=== PATIENT | female | born 1965 | race Caucasian/White ===

== ENCOUNTER 2017-09-18 17:11 | Emergency (ER) | payer OTHER ==
[~2017-09-18] VITALS: Ht 165.1 cm; Wt 67.6 kg
[2017-09-18 17:13] VITALS: TEMP 36.6; Ht 165.1 cm; Wt 67.6 kg
--- NOTE | 2017-09-18 17:25 | EMERGENCY ROOM VISIT NOTE ---
History Report prepared by Florentin: Orville Morales Under the Supervision of: Dr. Charline Link D.O. First contact with patient: 17:17 Chief Complaint: CHEST PAIN Stated Complaint: CHEST PAIN, TIGHTNESS,SOB History of Present Illness The patient is a 52 year old female who presents to the Emergency Room with complaints of constant chest pain beginning this morning. The patient states that her chest pain started this morning while she was at work. She notes that her pain is located under her right breast and feels as though "someone is squeezing really hard." She reports that her chest pain radiates around to her back and worsens to a sharp pain when she takes a deep breath and laughs. The patient also complains of occasional lightheadedness and SOB. She denies any changes in her urine/stool and leg swelling. The patient states that she has not had similar symptoms in the past. No prior cardiac testing. She notes that she has not had any recent change to her exercise and diet, and she reports that she does not have a previous history of stomach problems. The patient states that she did not take anything at home for her symptoms. She notes that she has a past history of vertigo. She reports that her father has a history of hypertension. She reports that she does not smoke cigarettes. Source of History: patient Onset: this morning Position: chest Quality: other (squeezing) Timing: constant Modifying Factors (Worsening): breathing, other (laughing) Associated Symptoms: + SOB, + back pain Note: The patient also complains of lightheadedness. She denies any changes in her urine/stool and leg swelling. Review of Systems See HPI for pertinent positives & negatives. A total of 10 systems reviewed and were otherwise negative. Past Medical & Surgical Medical Problems: (1) Alexander's palsy (2) Vertigo Family History FHx: cancer Hypertension Seizures Social History Smoking Status: Never Smoker Marital Status: Housing Status: lives with family Occupation Status: employed Current/Historical Medications No Active Prescriptions or Reported Meds Allergies Coded Allergies: No Known Allergies (Unverified , 09/18/17) Physical Exam Vital Signs Date Time Temp Pulse Resp B/P (MAP) Pulse Ox O2 Delivery O2 Flow Rate FiO2 09/18/17 22:25 78 18 163/88 96 09/18/17 22:01 138/79 09/18/17 21:46 62 16 95 09/18/17 21:31 131/81 09/18/17 21:16 65 16 97 09/18/17 21:05 65 09/18/17 21:01 133/94 09/18/17 20:46 66 22 97 09/18/17 20:35 150/78 09/18/17 20:35 67 17 150/78 97 Room Air 09/18/17 19:31 167/89 09/18/17 19:16 64 18 98 09/18/17 19:01 170/92 09/18/17 18:46 72 25 99 09/18/17 18:41 62 24 98 09/18/17 18:11 65 20 100 09/18/17 18:01 154/89 09/18/17 17:41 65 16 09/18/17 17:31 175/111 09/18/17 17:30 99 Room Air 09/18/17 17:26 63 09/18/17 17:13 36.6 69 17 187/105 97 Room Air Physical Exam GENERAL: alert, well appearing, well nourished, no distress, non-toxic EYE EXAM: normal conjunctiva, PERRL and EOM's grossly intact OROPHARYNX: no exudate, no erythema, lips, buccal mucosa, and tongue normal and mucous membranes are moist NECK: supple, no nuchal rigidity, no adenopathy, non-tender LUNGS: Clear to auscultation. Normal chest wall mechanics, no wheezes, rhonchi, and rales. HEART: no murmurs, S1 normal and S2 normal CHEST: Some reproducible tenderness just under bilateral breasts over mid chest wall anteriorly, right greater than left, no stepoff, no crepitus. Pt denies any changes to breasts recently. ABDOMEN: abdomen soft, non-tender, normo-active bowel sounds, no masses, no rebound or guarding. BACK: Back is symmetrical on inspection and there is no deformity, no midline tenderness, no CVA tenderness. SKIN: no rashes and no bruising UPPER EXTREMITIES: upper extremities are grossly normal. FROM, nml pulses b/l. LOWER EXTREMITIES: No pitting edema. FROM, nml pulses b/l. NEURO EXAM: Normal sensorium, cranial nerves II-XII grossly intact, normal speech, no gross weakness of arms, no gross weakness of legs. Medical Decision & Procedures ER Provider Diagnostic Interpretation: Radiology results have been interpreted by the radiologist and reviewed by me. CHEST ONE VIEW PORTABLE FINDINGS: Cardiomediastinal and hilar silhouettes are within normal limits. Calcification of the aorta. No pneumothorax, pleural effusion or overt pulmonary edema. Linear subsegmental opacities of the lateral left lung base suggest atelectasis. The bones of the chest appear grossly intact. IMPRESSION: No acute process. The above report was generated using voice recognition software. It may contain grammatical, syntax or spelling errors. Electronically signed by: Lauro Ryan M.D. 09/18/2017 5:54 PM Dictated Date/Time: 09/18/2017 5:53 PM GALLBLADDER-ABD LIMITED FINDINGS: The visualized pancreas appears unremarkable. Increased echogenicity of the liver may reflect hepatic steatosis. 9 mm cyst of the left hepatic lobe. No suspicious hepatic mass lesions or intrahepatic biliary ductal dilation. Gallbladder is unremarkable without wall thickening, pericholecystic fluid or shadowing cholelithiasis. Sonographic Yun sign reported as negative. Common bile duct is normal, 3 mm. The visualized right kidney appears unremarkable with mild pelviectasis. IMPRESSION: 1. No cholelithiasis or sonographic evidence of acute cholecystitis. 2. No biliary ductal dilation. 3. Mildly increased echogenicity of the liver may reflect hepatic steatosis. The above report was generated using voice recognition software. It may contain grammatical, syntax or spelling errors. Electronically signed by: Lauro Ryan M.D. 09/18/2017 8:17 PM Dictated Date/Time: 09/18/2017 8:14 PM Laboratory Results 09/18/17 17:45 Red Blood Count 4.99, Mean Corpuscular Volume 90.2, Mean Corpuscular Hemoglobin 31.7, Mean Corpuscular Hemoglobin Concent 35.1, Mean Platelet Volume 10.0, Neutrophils (%) (Auto) 56.1, Lymphocytes (%) (Auto) 33.4, Monocytes (%) (Auto) 8.0, Eosinophils (%) (Auto) 2.1, Basophils (%) (Auto) 0.2, Neutrophils # (Auto) 5.00, Lymphocytes # (Auto) 2.98, Monocytes # (Auto) 0.71, Eosinophils # (Auto) 0.19, Basophils # (Auto) 0.02 09/18/17 17:45 09/18/17 18:39 Test 09/18/17 17:45 09/18/17 18:39 09/18/17 21:20 White Blood Count 8.92 K/uL (4.8-10.8) Red Blood Count 4.99 M/uL (4.2-5.4) Hemoglobin 15.8 g/dL (12.0-16.0) Hematocrit 45.0 % (37-47) Mean Corpuscular Volume 90.2 fL (80-100) Mean Corpuscular Hemoglobin 31.7 pg (25-34) Mean Corpuscular Hemoglobin Concent 35.1 g/dl (32-36) Platelet Count 319 K/uL (130-400) Mean Platelet Volume 10.0 fL (7.4-10.4) Neutrophils (%) (Auto) 56.1 % Lymphocytes (%) (Auto) 33.4 % Monocytes (%) (Auto) 8.0 % Eosinophils (%) (Auto) 2.1 % Basophils (%) (Auto) 0.2 % Neutrophils # (Auto) 5.00 K/uL (1.4-6.5) Lymphocytes # (Auto) 2.98 K/uL (1.2-3.4) Monocytes # (Auto) 0.71 K/uL (0.11-0.59) Eosinophils # (Auto) 0.19 K/uL (0-0.5) Basophils # (Auto) 0.02 K/uL (0-0.2) RDW Standard Deviation 43.4 fL (36.4-46.3) RDW Coefficient of Variation 13.2 % (11.5-14.5) Immature Granulocyte % (Auto) 0.2 % Immature Granulocyte # (Auto) 0.02 K/uL (0.00-0.02) Anion Gap 7.0 mmol/L (3-11) Est Creatinine Clear Calc Drug Dose 69.7 ml/min Estimated GFR () 92.0 Estimated GFR (Non- 79.3 BUN/Creatinine Ratio 18.4 (10-20) Calcium Level 9.0 mg/dl (8.5-10.1) Total Bilirubin 0.3 mg/dl (0.2-1) Alanine Aminotransferase (ALT/SGPT) 22 U/L (12-78) Alkaline Phosphatase 113 U/L (45-117) Total Protein 8.1 gm/dl (6.4-8.2) Albumin 4.1 gm/dl (3.4-5.0) Globulin 4.0 gm/dl (2.5-4.0) Albumin/Globulin Ratio 1.0 (0.9-2) Lipase 159 U/L (73-393) Prothrombin Time 10.1 SECONDS (9.0-12.0) Prothromb Time International Ratio 1.0 (0.9-1.1) D-Dimer < 190 ug/L FEU (0-500) Magnesium Level 2.1 mg/dl (1.8-2.4) Aspartate Amino Transf (AST/SGOT) 17 U/L (15-37) Troponin I < 0.015 ng/ml (0-0.045) Laboratory results per my review. Medications Administered Medications (Trade) Dose Ordered Sig/Olivia Route Start Time Stop Time Status Last Admin Dose Admin Famotidine (Pepcid Tab) 20 mg NOW ONCE PO 09/18/17 18:45 09/18/17 18:46 DC 09/18/17 18:52 20 MG Ketorolac Tromethamine (Toradol Inj) 30 mg NOW STAT IV 09/18/17 18:40 09/18/17 18:42 DC 09/18/17 18:52 30 MG Al Hydroxide/Mg Hydroxide (Maalox Susp) 15 ml NOW STAT PO 09/18/17 20:32 09/18/17 20:33 DC 09/18/17 20:48 15 ML ECG Per My Interpretation Indication: chest pain Rate (beats per minute): 64 Rhythm: sinus rhythm Findings: no acute ischemic change, no ectopy, other (Normal axis, normal intervals) ED Course 1718: The patient was evaluated in room B3. A complete history and physical exam was performed. 1839: Toradol Inj 3mg IV 1844: Famotidine 20mg PO 1906: I reevaluated and updated the patient. She states that she is still having chest pain. She will have a repeat troponin drawn. 2031: Maalox Susp 15ml PO 2044: I rechecked the patient. She is feeling better. 2206: Upon reevaluation, the patient is feeling better. I discussed the findings and the treatment plan with the patient. She verbalizes agreement and understanding. The patient was discharged home. Medical Decision Differential diagnosis: Etiologies such as cardiac ischemia, aortic dissection, pulmonary embolism, pneumonia, pneumothorax, musculoskeletal, infections, pericarditis, myocarditis , esophageal rupture, gastrointestinal, as well as others were entertained. HEART score 1 Patient well-appearing here despite complaints, hemodynamically stable throughout. Patient initially with hypertension noted I feel this is most likely secondary to pain and anxiety regarding the situation. Patient low risk for ACS, vascular pathology, no symptoms to suggest infectious etiology, and I doubt PE. Patient improved here with medication. Discussed with her possible acalculous biliary colic or evolving cholecystitis. Labs reassuring ultrasound negative. Discussed follow-up with PCP for discussion of possible outpatient HIDA scan. Discussed diet and possible gastritis contributing to pain. Discussed avoidance of acidic foods and use of Pepcid in the interim. Discussed with her all results and she verbalized understanding. Discussed symptoms to watch and return for, she verbalized understanding was agreeable with plan. I do not suspect hypertensive urgency/emergency, tamponade, no evidence of effusion or infiltrate, I do not suspect perforation, GI bleed, bowel obstruction, mesenteric ischemia. Medication Reconcilliation Current Medication List: was personally reviewed by me Blood Pressure Screening Patient's blood pressure: Elevated blood pressure Blood pressure disposition: Elevated BP felt to be situational Impression Primary Impression: Chest pain Scribe Attestation The scribe's documentation has been prepared under my direction and personally reviewed by me in its entirety. I confirm that the note above accurately reflects all work, treatment, procedures, and medical decision making performed by me. Departure Information Dispostion Home / Self-Care Prescriptions No Active Prescriptions or Reported Meds Referrals No Doctor, Assigned (PCP) Forms Call Back Authorization, HOME CARE DOCUMENTATION FORM, IMPORTANT VISIT INFORMATION Patient Instructions My [facility] Additional Instructions Please call and follow-up with your family doctor to recheck your symptoms. If you have any recurrent pain, develop vomiting, trouble breathing, fevers/chills , dizziness, or you have any other new or concerning symptoms, please return to the emergency room. Please avoid any strenuous activity or heavy lifting until you are feeling better. Please avoid highly acidic foods which could contribute to stomach irritation including coffee, soda, alcohol, citrus fruits , and tomato based products. These can contribute to stomach irritation which could contribute to pain. Problem Qualifiers Primary Impression: Chest pain Chest pain type: unspecified Qualified Codes: R07.9 - Chest pain, unspecified
[2017-09-18 17:54] LABS: BASO % 0.2 %; BASO ABS # 0.02 K/uL (0-0.2); EOS % 2.1 %; EOS ABS # 0.19 K/uL (0-0.5); HEMOGLOBIN 15.8 g/dL (12.0-16.0); IG# 0.02 K/uL (0.00-0.02); LYMPH % 33.4 %; LYMPH ABS # 2.98 K/uL (1.2-3.4); MEAN CELL VOLUME 90.2 fL (80-100); MEAN CORPUSCULAR HEMOGLOBIN 31.7 pg (25-34); MEAN CORPUSCULAR HGB CONC 35.1 g/dl (32-36); MONO ABS # 0.71 K/uL (0.11-0.59); NEUT % 56.1 %; PLATELET COUNT 319 K/uL (130-400); RED CELL DISTRIBUTION WIDTH CV 13.2 % (11.5-14.5); RED CELL DISTRIBUTION WIDTH SD 43.4 fL (36.4-46.3); WHITE BLOOD COUNT 8.92 K/uL (4.8-10.8)
--- NOTE | 2017-09-18 17:55 | DIAGNOSTIC IMAGING REPORT ---
CHEST ONE VIEW PORTABLE HISTORY: 52 years-old Female chest pain acute atypical chest pain COMPARISON: None available TECHNIQUE: Portable AP view of the chest FINDINGS: Cardiomediastinal and hilar silhouettes are within normal limits. Calcification of the aorta. No pneumothorax, pleural effusion or overt pulmonary edema. Linear subsegmental opacities of the lateral left lung base suggest atelectasis. The bones of the chest appear grossly intact. IMPRESSION: No acute process. The above report was generated using voice recognition software. It may contain grammatical, syntax or spelling errors. Electronically signed by: Lauro Ryan M.D. 09/18/2017 5:54 PM Dictated Date/Time: 09/18/2017 5:53 PM
[2017-09-18 18:13] LABS: ALBUMIN 4.1 gm/dl (3.4-5.0); ALT/SGPT 22 U/L (12-78); BLOOD UREA NITROGEN 16 mg/dl (7-18); CARBON DIOXIDE 28 mmol/L (21-32); CREATININE 0.84 mg/dl (0.60-1.20); GLUCOSE 90 mg/dl (70-99); LIPASE 159 U/L (73-393); SODIUM 138 mmol/L (136-145)
[2017-09-18 18:17] LABS: ALKALINE PHOSPHATASE 113 U/L (45-117); TOTAL PROTEIN 8.1 gm/dl (6.4-8.2)
[2017-09-18] MEDS ORDERED: KETOROLAC TROMETHAMINE 30 MG/ML VIAL IV STA (18:40)
[2017-09-18] MEDS ORDERED: FAMOTIDINE 20 MG TAB PO ONE (18:45)
[2017-09-18 19:02] LABS: POTASSIUM 3.6 mmol/L (3.5-5.1)
--- NOTE | 2017-09-18 20:18 | DIAGNOSTIC IMAGING REPORT ---
GALLBLADDER-ABD LIMITED HISTORY: 52 years-old Female ruq tenderness acute right upper quadrant abdominal pain and tenderness COMPARISON: None available TECHNIQUE: Multiple real-time sonographic images of the abdominal right upper quadrant were obtained assessing grayscale appearance and color flow FINDINGS: The visualized pancreas appears unremarkable. Increased echogenicity of the liver may reflect hepatic steatosis. 9 mm cyst of the left hepatic lobe. No suspicious hepatic mass lesions or intrahepatic biliary ductal dilation. Gallbladder is unremarkable without wall thickening, pericholecystic fluid or shadowing cholelithiasis. Sonographic Yun sign reported as negative. Common bile duct is normal, 3 mm. The visualized right kidney appears unremarkable with mild pelviectasis. IMPRESSION: 1. No cholelithiasis or sonographic evidence of acute cholecystitis. 2. No biliary ductal dilation. 3. Mildly increased echogenicity of the liver may reflect hepatic steatosis. The above report was generated using voice recognition software. It may contain grammatical, syntax or spelling errors. Electronically signed by: Lauro Ryan M.D. 09/18/2017 8:17 PM Dictated Date/Time: 09/18/2017 8:14 PM
[2017-09-18] MEDS ORDERED: ALUMINUM/MAGNESIUM SUSP 30 ML UDC PO STA (20:32)
[2017-09-18 22:25] VITALS: BP 163/88; PULSE 78; O2SAT 96
== END 2017-09-18 22:29 | disposition home or self-care (01) ==
LOC: C.EDB 17:12
DX: R07.9 Chest pain, unspecified (principal); R42 Dizziness and giddiness; R06.02 Shortness of breath; M54.9 Dorsalgia, unspecified; G51.0 Bell's palsy